=== PATIENT | male | born 1960 | race Caucasian/White ===

== ENCOUNTER → 2023-01-15 12:59 | Outpatient (CLI) | payer OTHER, SELFPAY ==
[2023-01-15 13:56] LABS: Add Manual Diff / Slide Review NO; Basophils Absolute Auto 100 /uL (0-100); Basophils Percent Auto 1.1 % (0-2); Eosinophils Absolute Auto 500 /uL (0-450); Eosinophils Percent Auto 5.1 % (2-4); Hematocrit 45.7 % (41-53); Hemoglobin 16.6 g/dL (13.5-17.5); Lymphocytes Absolute Auto 3100 /uL (1100-4500); Lymphocytes Percent Auto 33.5 % (25-40); Mean Corpuscular HGB Conc 36.3 % (30-36); Mean Corpuscular Hemoglobin 32.6 PG (26-34); Mean Corpuscular Volume 89.6 fL (80-100); Monocytes Absolute Auto 800 /uL (0-900); Monocytes Percent Auto 9.2 % (3-14); Neutrophils Absolute Auto 4700 /uL (1500-7000); Neutrophils Percent Auto 51.1 % (50-75); Platelet Count 312 X10^3/uL (150-400); Red Cell Distribution Width 13.1 % (11.6-14.8); White Blood Cell Count 9.1 X10^3/uL (4.5-11.0)
[2023-01-15 14:04] LABS: BUN Creatinine Ratio 8.6 (6-22); Blood Urea Nitrogen 8 mg/dL (9-20); Calcium 9.3 mg/dL (8.4-10.2); Carbon Dioxide 24 mmol/L (22-32); Chloride 102 mmol/L (98-107); Estimated Glomerular Filt Rate > 60 mL/min (>60); Glucose 121 mg/dL (80-110); HEMOLYSIS < 15 (0-50); Potassium 3.6 mmol/L (3.4-5.1); Sodium 136 mmol/L (137-145)
[2023-01-16 12:30] LABS: Labcorp Hemoglobin (Hb) A1c 5.8 % (4.8-5.6)
== END ==
PROVIDERS: Referring Provider Orthopaedic Surgery Foot and Ankle Surgery; Visit Provider Orthopaedic Surgery Foot and Ankle Surgery
DX: Z01.818 Encounter for other preprocedural examination (principal); Z01.812 Encounter for preprocedural laboratory examination; R73.9 Hyperglycemia, unspecified
CPT/HCPCS: 36415; 80048; 83036; 85025; 93005

== ENCOUNTER 2023-02-12 06:21 | Day surgery (SDC) | payer OTHER, SELFPAY ==
[2023-02-09 13:50] VITALS: BMI 34.9
[2023-02-12] VITALS (16 sets, daily range): BP systolic 127–160; BP diastolic 76–93; PULSE 55–75; RESP 11–19; TEMP 36.2–36.6; O2SAT 5–97; BMI 34.9
--- NOTE | 2023-02-12 06:00 | DI.RAD.S_ITS ---
PROCEDURE: XR KNEE RT 1TO2V INDICATIONS: POST OP TOTAL KNEE TECHNIQUE: 2 view(s) of the knee acquired. COMPARISON: [facility] [place], JIMMY, XR KNEE 4+ VIEWS RIGHT, 11/10/2022, 14:34. FINDINGS: Bones: Patient is status post knee joint arthroplasty. Hardware components are in expected positions. Visualized bony structures are intact. Soft tissues: Overlying postoperative changes are noted. IMPRESSION: Expected postoperative appearance of the right knee arthroplasty. Dictated by: Narendra Mead M.D. on 02/12/2023 at 12:08 Approved by: Narendra Mead M.D. on 02/12/2023 at 12:10
[2023-02-12] MEDS: ACETAMINOPHEN 325 MG TABLET 975 MG PO (07:08)
[2023-02-12] MEDS: PREGABALIN 75 MG CAPSULE PO (07:09)
[2023-02-12] MEDS: CELECOXIB 200 MG CAPSULE PO (07:10)
--- NOTE | 2023-02-12 07:14 | PM.PREOP ---
Pre-operative Note Interval Note History & Physical reviewed/Exam performed by Physician: Yes Changes to H&P: No
[2023-02-12] MEDS: LACTATED RINGERS 1,000 ML 42 ML IV ×3 (07:16→20:12)
[2023-02-12] MEDS: CEFAZOLIN 2 GM/100 ML PREMIX 100 ML IV (08:00)
--- NOTE | 2023-02-12 08:00 | PM.OP.1 ---
Operative Date/Time/Diagnoses Date of procedure: 02/12/23 Time of procedure: 08:00 Pre-op diagnosis: Arthritis right knee BMI 35 Post-op diagnosis: same Procedure & Clinicians Procedure: Total knee arthroplasty right CPT code 98540 Same procedure as scheduled: Yes Indications: Patient is a 62-year-old male that sustained a permanent aggravation of right knee arthritis and calcium pyrophosphate disease with an at work injury. He is failed conservative treatment with anti-inflammatories arthroscopic surgery and injections and braces. He has been indicated for total knee arthroplasty. The risks and benefits of the procedure have been discussed with the patient and given the opportunity to ask questions. The risks of surgery include but are not limited to infection, malunion, nonunion, persistence of pain, damage to nerves and blood vessels, posttraumatic arthritis, DVT, PE, cardiopulmonary complications and . The patient expressed a thorough understanding of the risks and benefits of surgery and has elected to proceed. Consent was signed. During the operation, the services of a physician neurosurgical nurse were medically indicated and necessary to provide the exposure of the operative site for the surgical procedure and to maintain the limb in a proper position to carry out the operation safely and efficiently. Without a qualified social work assistant being present this would extended the operative procedure and made the procedure technically more difficult to perform. Surgeon: Hailey Lacey Seam Closer: William Jeronimo Anesthesia Type: General, Spinal and Local Operative Notes Findings: Tricompartmental End-stage knee arthritis, chondrocalcinosis Closure Type: primary Specimen(s): none sent Prosthetic devices, grafts, tissues, transplants, or devices: [employer]ges and nephew journey BCS II knee Femur Oxinium size 9 Tibia size 7 Poly 9 mm Patella 35 mmx 7.5 Estimated Blood Loss (mL): 30 Blood products transfused: none Tourniquet time (min): 103 Procedure in detail: Patient was seen in the preoperative area where the patient and site of surgery were identified in the operative knee was marked informed consent confirmed. This was the left knee. Patient received the appropriate preoperative antibiotics this was 3 g of Ancef. And other preoperative medications and was taken to the operating room placed on operating table in the supine position. Spinal anesthetic were administered. The operative extremity was then prepped and draped in the standard sterile fashion with a nonsterile tourniquet high on the thigh. Patient was placed on the green foam bolsters. A lateral post was placed at the level of the proximal thigh /trochanter area as a lateral post. Formal time-out procedure was performed confirming the patient's side and site of surgery and administration of appropriate preoperative antibiotics and implants were in the room accounted for. All were in agreement. Patient received a preoperative dose of tranexamic acid and then a 2nd dose at tourniquet release Patient was prepped and draped in the standard sterile fashion and the foot was placed into the [facility] leg lewis. This was taken into high flexion and the incision was marked out over the anterior knee to the level of the medial tubercle tubercle. The Esmarch was then used for exsanguination and the tourniquet was inflated to 250 mmHg. Was made through the skin and subcutaneous tissue in high flexion this was then brought down into 30? of flexion for the medial parapatellar arthrotomy. A marker pen was used to roxanne the arthrotomy site for later repair. Joint fluid was evacuated. The anterior osteophytes and soft tissues were removed. Routine medial release was initially made along the medial proximal tibia with Bovie. The patella was on quite a bit of tension on attempted eversion so the quad incision was lengthened to relax it and then the patella was 1st cut using the saw sized and prepped and then subluxed throughout the case and protected. The leg was then taken into extension and the patella was everted and the patella was cut to accommodate the patellar button. This was sized to a 35 mm button for a 7.5 mm thickness to recreate the original dimensions of the patella. Poly was removed and the protector replaced and the patella was subluxed and the knee was taken back up into flexion and attention was returned to the femur. Then the rotational landmarks of Whitesides line and the trans epicondylar axis were marked on the femur with electrocautery. Then the intramedullary guide for the femur was created. The distal femoral cut was made in 6? of valgus using the intramedullary guide with the cut setting on 0+ as the patient did not have a preoperative flexion contracture. The ACL and PCL released. The proximal tibia was then cut using the intramedullary guide, taking 9 mm off the less involved side this was the lateral plateau. The Robert wing was used to check the slope through the guide. Second pass was made through the tibial cut guide with the saw after the cut tibia was removed plane down about 1 more mm and further smooth then the resection surface. In extension remainders of the medial and lateral menisci were removed. The extension flexion gaps were then checked using both the flexion extension blocks. And was selected for a 9 mm poly femur was then sized and the rotation set using the posterior condyle referencing 3? of external rotation. This measured a size 9. Therefore 2 more mm were taken off the distal femur to accommodate for the size 9 cut block. Cut block was then placed and the anterior, posterior and chamfer cuts were then made. The posterior osteophytes and soft tissues were then removed. Then in extension the posterior capsule was injected with a mixture of 40 mL of 0.25% Marcaine and 20 mL of Exparel care to avoid excessive injection posterior laterally. The remainder of this was saved for the capsule and subcutaneous tissue and placed during cement curing. Attention was then returned to the tibia and this was prepared with the rotation set by the extramedullary guide. Lined up with the tibial crest and the 2nd toe. The tibial trial was then pinned in place and the trial femoral components were placed. Then the intercondylar notch was cut through the femoral trial to create the box this was done with the distal than the proximal drill and then the box cut distally and then proximally. Next the insert was placed and the trial poly placed. This was stable in flexion and extension and there was a 0-135 degree range of motion. The tibia was then finished with the drill and flange cuts and then this was removed. All trials were removed. The wound and bone was irrigated with pulsatile lavage. This was then dried with a sponge. The components were verified and opened and the cement was mixed. Cement was applied to the components and then to the bone then the tibia was cemented in place 1st followed by the femur then the patella. Excess cement was removed. With care looking around the back of the knee. Remainder of the injection was injected around the capsule. trial poly was placed back in the leg was placed into extension for the patellar cementing. After this was cured approximately 15 minutes later and the dilute Betadine solution was placed for at least 3 minutes in the wound this was then irrigated out and the final poly was placed. This was a 9 mm poly. The tourniquet was released hemostasis was achieved. Final 1g of tranexamic acid was given IV at the time of tourniquet release. The capsule was closed with 1. Ethibond suture. Subcutaneous layer was closed with 3-0 Vicryl suture. Skin was closed with a running V lock suture Stratafix Monocryl type suture and Dermabond. An Aquacel dressing was placed. An Layo wrap was applied. Anesthetic was terminated the patient was woken from anesthesia and taken to recovery room in good condition. There no immediate complications from this procedure. The patient will be maintained on a standard total knee replacement protocol with weight-bearing as tolerated. All counts were correct. Complications: none Post-operative Condition: stable Disposition: PACU Plan for aftercare: Weightbear as tolerated. Immediate range of motion. Outpatient physical therapy and home exercises. We will start Eliquis 2.5 mg b.i.d. for 12 days for DVT prophylaxis postoperatively. Has prescriptions for oxycodone for pain, Zofran for nausea and may take [id number] Tylenol and ibuprofen. Follow-up in 2 weeks for wound check. May shower with the Aquacel dressing
[2023-02-12] MEDS: CEFAZOLIN VIAL 1 GM in SODIUM CHLORIDE 0.9% 100 ML IV (08:15)
[2023-02-12] MEDS: TRANEXAMIC ACID 1,000 MG VIAL 1000 MG INJ ×2 (08:20→10:10)
--- NOTE | 2023-02-12 08:32 | SUR.OPER ---
Supine on padded OR bed, head on pillow, arms secured on padded arm boards and additional blankets to pad up at <90 degrees abduction, legs uncrossed, safety belt at abdomen, tape over blanket over lower left leg. Right leg secured in DeMayo positioner with coban and cushioned with foam.
[2023-02-12] MEDS: BUPIVACAINE 0.25% (PF) 60 ML, EPINEPHrine 0.3 MG INJ (08:54)
[2023-02-12] MEDS: BUPIVACAINE LIPOSOME 266 MG/20 ML VIAL INJ (08:55)
--- NOTE | 2023-02-12 11:43 | SUR.PHASEII ---
Placed patient in Phase 2 recovery for further evaluation of spinal level and dermatomes. Patient remains on oxygen at 3 liters via nasal cannula and is in no distress. Will further evaluate spinal level and oxygenation. Calll light in reach.
--- NOTE | 2023-02-12 14:45 | PT.IPTN ---
Current Diagnoses Other specified crystal arthropathies, right knee (02/12/23) Unilateral primary osteoarthritis, right knee (02/12/23) Surgery Performed Operation Date: 02/12/23 07:45 Actual Procedures p Total Knee Arthroplasty(Right) - Hailey Lacey MD Physical Therapy Treatment Note M3 PT-IP Subjective Start: 02/12/23 15:07 Freq: NEEDED Status: Active Protocol: Document 02/12/23 14:45 AB (Rec: 02/12/23 15:37 AB [id number]) Subjective Physical Therapy Visit Type Type Administrative Note Notes checked on pt but pt stated that BLE are still numb. pt is not ready for PT at this time. obtained PLOF and home set up from pt. will follow up
--- NOTE | 2023-02-12 15:12 | OT.IPNOTE ---
Attempted OT eval and not able to fully feel his right knee at this time. Able to get his prior level and initiate ADL equipment needs. No charge.
--- NOTE | 2023-02-12 15:37 | PT-IP ANOTE ---
checked on pt at 1445 and pt stated that BLE are still numb. pt is not ready for PT at this time. checked back on pt after ~ 30 min and pt continues to still have BLE numbness and still not appropriate for PT. will f/u.
[2023-02-12] MEDS: hydrOXYzine pamoate 25 MG CAPSULE PO (15:43)
[2023-02-12] MEDS: OXYCODONE IR 10 MG TABLET PO (15:43)
[2023-02-12] MEDS: ACETAMINOPHEN 325 MG TABLET 650 MG PO ×2 (16:03→22:39)
[2023-02-12] MEDS: CEFAZOLIN VIAL 3 GM in SODIUM CHLORIDE 0.9% 100 ML IV (16:05)
[2023-02-12] MEDS: IBUPROFEN 600 MG TABLET PO (18:54)
[2023-02-12] MEDS: DOCUSATE 100 MG CAPSULE PO (20:10)
[2023-02-12] MEDS: APIXABAN 5 MG TABLET 2.5 MG PO (20:10)
[2023-02-13] MEDS: CEFAZOLIN VIAL 3 GM in SODIUM CHLORIDE 0.9% 100 ML IV (00:19)
[2023-02-13] MEDS: IBUPROFEN 600 MG TABLET PO ×3 (00:21→18:08)
[2023-02-13] MEDS: ACETAMINOPHEN 325 MG TABLET 650 MG PO ×4 (03:54→21:44)
--- NOTE | 2023-02-13 07:48 | P.PN_ITS ---
Subjective Subjective Date Patient Seen: 02/13/23 Time Patient Seen: 07:48 Interval history: [id number] pain. No fever or chills. No nausea or vomiting. Exam Vital Signs (past 8 hours): Oxygen Delivery Method Nasal Cannula Oxygen Flow Rate 0 Narrative Exam Narrative: 62-year-old male resting comfortably in bed in no apparent distress. Dressing is Clean, dry, intact.. Motor functions intact bilateral lower extremities. Sensation grossly intact to light touch bilateral lower extremities. Const General: cooperative and comfortable Nutritional Appearance: well nourished Orientation: alert Resp Effort & Inspection: normal respiratory effort and able to speak in complete sentences [facility] Medical History Hepatitis Psoriasis Surgical History Hx of arthroscopy of right knee Social History household members: none Smoking Status: Former smoker alcohol intake: former Assessment & Plan Post-op Postoperative Procedures: Procedures Operation Date: 02/12/23 07:45 Actual Procedure Side Surgeon p Total Knee Arthroplasty Right Hailey Lacey MD Postoperative day: 1 Postoperative status: doing well Postoperative plan: routine post-op care Postoperative plan narrative: Mobilize with physical therapy, weight-bearing as tolerated Multimodal pain management Eliquis for DVT prophylaxis Likely discharge home later today or tomorrow.
[2023-02-13 08:29] VITALS: BP 147/85; PULSE 63; RESP 18; TEMP 36.2; O2SAT 93
[2023-02-13] MEDS: APIXABAN 5 MG TABLET 2.5 MG PO ×2 (09:23→20:24)
[2023-02-13] MEDS: OXYCODONE IR 10 MG TABLET PO ×4 (09:25→21:48)
[2023-02-13] MEDS: DOCUSATE 100 MG CAPSULE PO ×2 (09:25→20:25)
[2023-02-13] MEDS: SODIUM CHLORIDE 0.9% FLUSH 10 ML IV ×2 (09:26→20:27)
[2023-02-13] MEDS: hydrOXYzine pamoate 25 MG CAPSULE PO ×2 (11:23→20:25)
--- NOTE | 2023-02-13 11:50 | PT.IIE ---
Current Diagnoses Other specified crystal arthropathies, right knee (02/12/23) Unilateral primary osteoarthritis, right knee (02/12/23) Surgery Performed Operation Date: 02/12/23 07:45 Actual Procedures p Total Knee Arthroplasty(Right) - Hailey Lacey MD Surgical History (Last Reviewed 02/13/23 @ 07:49 by William Jeronimo PA-C) Hx of arthroscopy of right knee Medical History (Last Reviewed 02/13/23 @ 07:49 by William Jeronimo PA-C) Hepatitis Psoriasis Physical Therapy Inpatient Evaluation/Re-Eval M1 PT/OT-IP Prior Functional Status Start: 02/12/23 15:07 Freq: NEEDED Status: Active Protocol: Document 02/13/23 11:34 ES (Rec: 02/13/23 11:50 ES [id number]) Medical Review Prior Functional Status Medical History Reviewed Yes Communication able to make needs known Mobility and Gait pt stated that he is independent with all mobilities and ambulation without AD Activities of Daily Living and IADL's Indep Social History Household Members none Living Arrangements House Number of Floors (Floors) One Floor Number of Stairs To Enter/Railing? no steps to enter Home Environment Standard Height Toilet,Walk in Shower,Built-In Shower Seat Home Equipment Front Wheel Walker,Straight Cane,Raised Toilet Seat w/ Armrests,Hand Held Shower,Grab Bars Near Toilet,Grab Bars In Shower Additional Social History Comment Pt stated that his brother and JOSE lives just across the street from him and can help him if needed. Pt sleeps in a flat bed and has a rail attached to the wall next to the bed. M2 PT-IP Current Condition Start: 02/12/23 15:07 Freq: NEEDED Status: Active Protocol: Document 02/13/23 11:34 ES (Rec: 02/13/23 11:50 ES [id number]) Physical Therapy Current Condition Current Condition Evaluation Date 02/13/23 Treatment Diagnosis s/p R TKA Onset Date 02/12/23 M3 PT-IP Subjective Start: 02/12/23 15:07 Freq: NEEDED Status: Active Protocol: Document 02/13/23 11:34 ES (Rec: 02/13/23 11:50 ES [id number]) Subjective Physical Therapy Visit Type Type Initial Evaluation Visit Start Time 10:42 Visit Stop Time 11:29 Total Visit Minutes 47 Physical Therapy Visit Comments Patient Comments Patient alert in bed, had received pain meds about 1 hour prior to visit and reported they are helping some . Agreeable to work with PT. Stated he has had R knee pain ever since prior knee surgery and has had to make accommodations for it leading up to surgery. Takes 10mg oxycodone at home. Has OP PT scheduled already. Patient Goals To go home when ready. Therapy Pain Assessment Pain When Pain Assessed During Mobility Pain Present Pain Present Pain Reported Location R knee Scale Used 5/10 at rest, increased with activity Pain Management Techniques Apply Cold,Elevation, Modification of Treatment, Timing of Activity with Medications M4 PT-IP Mobility and Gait Start: 02/12/23 15:07 Freq: NEEDED Status: Active Protocol: Document 02/13/23 11:34 ES (Rec: 02/13/23 11:50 ES [id number]) PT-Bed Mobility Assessment Supine to Sit Supine to Sit Minimal Assistance,Bedrails Scooting Scooting to Edge of Bed Standby Assistance Scooting Up and Down in Bed Independent PT-Transfer Assessment Sit to and From Stand Sit to and from Stand Contact Guard Assistance,Use of Upper Extremities Equipment Transfer Assistive Device Gait Belt,Front Wheeled Walker Orthotic/Prosthetic Devices or Brace: No Transfers Transfer Destination Chair Transfer Technique Ambulation Transfer Ability Level of Assist Contact Guard Assistance,Use of Upper Extremities Comments Mobility Comments Required assist to move RLE to EOB for supine to sit. CGA for initial STS, then SBA for stand to sit. All transitions very painful in R thigh/knee. Patient stood to urinate at toilet using grab bar with supervision. Patient up to recliner at end of session with leg rest elevated, pillow under calves. Gait Assessment Gait Gait Assistance Required: Contact Guard Assist Distance (Feet) 16 Assistive Devices Assistive Device Gait Belt,Front Wheeled Walker Gait Deviations General Gait Pattern Antalgic,Decreased Stride Length,Decreased Feet Clearance,Step-to Gait Factors Limiting Gait Function Factors Limiting Gait Function Decreased Strength,Limited Range of Motion,Pain Comments Gait Comments Patient ambulated with decreased WB on RLE due to pain, decreased heel-toe pattern, and decreased R knee flexion/extension. C/o pain with increased WB on RLE. Patient use his personal FWW; PT adjusted the height lower to allow more elbow extension for more effective UE support. Stair Climbing Assessment Comments Stair Climbing Comments Did not attempt due to high levels of pain and decreased WB tolerance with walking. PT-Balance Assessment Sitting Balance and Reactions Static Sitting Balance Ability Good Dynamic Sitting Balance Ability Good Standing Balance and Reactions Static Standing Balance Ability Good Dynamic Standing Balance Ability Fair Device Used FWW M5 PT-IP Objective Assessments Start: 02/12/23 15:07 Freq: NEEDED Status: Active Protocol: Document 02/13/23 11:34 ES (Rec: 02/13/23 11:50 ES [id number]) Orientation Orientation/Cognition Level of Alertness Alert Orientation Name,Age,Birthday,Month,Date, Year,Day of Week,Place, Situation Language Function Ability No Deficits Noted Safety Awareness Understands Safety Issues Memory Description No Deficits Noted Gross Range of Motion Upper Extremity ROM Assessment Within Functional Limits Lower Extremity ROM Assessment Right Impaired Impairments R knee flexion 10-40 degrees, otherwise WFL Strength Upper Extremity Strength Assessment Within Functional Limits Lower Extremity Strength Assessment Right Impaired Comments Strength Comments Poor+ quad activation with quad sets. Required assist to perform heel slide/knee flexion. Sensation Assessment Sensation Gross Sensation WNL M6 PT-IP Treatment Start: 02/12/23 15:07 Freq: NEEDED Status: Active Protocol: Document 02/13/23 11:34 ES (Rec: 02/13/23 11:50 ES [id number]) Physical Therapy Treatment Exercises Exercises Ankle Pumps,Quad Sets,Heel Slides,Straight Leg Raises, Short Arc Quads,Seated Knee Flexion/Extension Education Education Provided Precautions,Weight Bearing Status,Post-Op Packet,Safety M7 PT-IP Assessment and Plan Start: 02/12/23 15:07 Freq: NEEDED Status: Active Protocol: Document 02/13/23 11:34 ES (Rec: 02/13/23 11:50 ES [id number]) PT Summary Assessment and Plan Potential Rehabilitation Potential Good Status of Condition at Evaluation Stable Summary Impairments Pain,ROM,Strength,Balance,Bed Mobility,Transfers,Gait, Activity Tolerance Assessment Summary Patient is a 62 year old male POD #1 s/p R TKA. Patient had poor tolerance to mobility and exercises due to pain. He demonstrated very limited R knee flexion and was unable to tolerate full knee extension. He ambulated 16 ft total with slow, antalgic gait. He required assistance to complete ex's due to pain, weakness, and stiffness. He will benefit from further skilled therapy to increase his independence with mobility tasks and HEP in order to d/c home safely. Goals Bed Mobility Goal Independent Transfer Goal Independent,Front Wheeled Walker Gait Goal Independent,Front Wheel Walker Gait Distance 50 Other Goals Patient will be indep with TKA HEP. Days to Meet Goals 3 Frequency of Treatment Frequency Of Treatment Twice a Day Treatment Plan Physical Therapy Treatment Plan Bed Mobility Training,Transfer Training,Gait Training, Therapeutic Exercise,Post Op Education,Discharge Planning, Hot or Cold Pack Weight Bearing Status Weight Bearing Status Weight Bear as Tolerated Allowed Weight Bearing Amount (enter % WBAT RLE or #) (%) Recommendations To Nursing Amount of Assist Needed 1 Person Assist Discharge Recommendations PT Discharge Recommendations Home with Assistance, Outpatient PT Transportation Needs at Discharge Private Vehicle
--- NOTE | 2023-02-13 12:13 | OT.IP.EVAL ---
Current Diagnoses Other specified crystal arthropathies, right knee (02/12/23) Unilateral primary osteoarthritis, right knee (02/12/23) Surgery Performed Operation Date: 02/12/23 07:45 Actual Procedures p Total Knee Arthroplasty(Right) - Hailey Lacey MD Past Medical History (Last Reviewed 02/13/23 @ 13:20 by William Jeronimo PA-C) Hepatitis Psoriasis Surgical History (Last Reviewed 02/13/23 @ 13:20 by William Jeronimo PA-C) Hx of arthroscopy of right knee Occupational Therapy Inpatient Evaluation/Re-Eval M1 PT/OT-IP Prior Functional Status Start: 02/12/23 15:07 Freq: NEEDED Status: Active Protocol: Document 02/13/23 12:42 CGR (Rec: 02/13/23 13:22 CGR [id number]) Medical Review Prior Functional Status Medical History Reviewed Yes Communication able to make needs known Mobility and Gait pt stated that he is independent with all mobilities and ambulation without AD Activities of Daily Living and IADL's Indep Social History Household Members none Living Arrangements House Number of Floors (Floors) One Floor Number of Stairs To Enter/Railing? 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 Pt sleeps in a flat bed and has a rail attached to the wall next to the bed. M2 OT-IP Current Condition Start: 02/12/23 15:10 Freq: Status: Active Protocol: Document 02/13/23 12:42 CGR (Rec: 02/13/23 13:22 CGR [id number]) Occupational Therapy Current Condition Current Condition Evaluation Date 02/13/23 Treatment Diagnosis R TKA WBAT Diagnosis Onset Date 02/12/23 Weight Bearing Status Weight Bearing Status Weight Bear as Tolerated M3 OT- IP Subjective and Pain Start: 02/12/23 15:10 Freq: Status: Active Protocol: Document 02/13/23 12:42 CGR (Rec: 02/13/23 13:22 CGR [id number]) OT- Subjective Occupational Therapy Visit Type Type Initial Evaluation Visit Start Time 11:46 Visit Stop Time 12:13 Total Visit Minutes 27 OT Pain Assessment Pain When Pain Assessed During Mobility Pain Present Pain Present Pain Reported Location R knee Scale Used did not rate Pain Behaviors Facial Grimacing,Guarding, Wincing Management Techniques Distraction,Modification of Treatment,Re-positioning, Timing of Activity with Medications M4 OT- IP ADL's Start: 02/12/23 15:10 Freq: Status: Active Protocol: Document 02/13/23 12:42 CGR (Rec: 02/13/23 13:22 CGR [id number]) OT [id number] Comments OT Self-Feeding Comments not meal time OT ADL-Grooming General Evaluation Grooming Ability Independent Comments OT Grooming Comments standing at sink OT ADL-Oral Care General Eval Oral Care Ability Independent Areas of Assistance Brushing Teeth Comments Oral Care Comments standing at sink OT ADL-Dressing Comments OT Dressing Comments not performed, pt states that he was educated on use of outreach counselor and sock aid yesterday by Carito OT ADL-Toileting Comments OT Toileting Comments not performed, pt states he was just up to the bathroom with P.T. OT ADL-Bathing Comments OT Bathing Comments not performed M5 OT- IP IADL's Start: 02/12/23 15:10 Freq: Status: Active Protocol: Document 02/13/23 12:42 CGR (Rec: 02/13/23 13:22 CGR [id number]) OT-Instrumental Activities of Daily Living Deficits IADL Deficits Identified No Deficits Home Safety Awareness Awareness of Need for Assistance at Home Good Awareness Ability to Problem Solve Emergency Able to Problem Solve Situations Medication Management Medication Management No Deficits Identified Money Management Money Management No Deficits Identified Meal Preparation Meal Preparation Caregiver Provides Assist Meal Preparation Comments Pt states that his brother and sister in law can assist. Hospice Administrator Hospice Administrator Caregiver Provides Assist Hospice Administrator Comments Pt states that his brother and sister in law can assist. M6 OT- IP Functional Cognition Start: 02/12/23 15:10 Freq: Status: Active Protocol: Document 02/13/23 12:42 CGR (Rec: 02/13/23 13:22 CGR [id number]) Cognitive Factors Limiting Selfcare Function Cognitive Ability Level of Alertness Alert Patient Orientation Name,Age,Birthday,Month,Date, Year,Day of Week,Place, Situation Attention Span Ability Capable of Focused Attention, Capable of Sustained Attention Ability to Follow Commands Able to Follow One Step Commands with Increased Time, Able to Follow One Step Commands with Repetition OT- Vision and Hearing OT- Hearing Assessment OT- Hearing Assessment WFL OT- Vision Assessment Visual Acuity WFL Visual Attentiveness WFL Occular Pursuits WFL Visual Convergence WFL M7 OT- IP Mobility and Balance Start: 02/12/23 15:10 Freq: Status: Active Protocol: Document 02/13/23 12:42 CGR (Rec: 02/13/23 13:22 CGR [id number]) OT-Transfer Assessment Sit to and From Stand Sit to and from Stand Contact Guard Assistance Transfers Transfer Ability Contact Guard Assistance Technique Transfer Destination Bed Transfer Technique Stand Step Pivot Devices Transfer Assistive Devices Gait Belt,Front Wheeled Walker Comments Mobility Comments Pt stood from chair with extra time and CGA. Pt then ambualted to sink for ADLs and returned to chair afterwards. Pt educated on putting RLE out prior to sitting and sitting slowly but pt performed an uncontrolled stand to sit plopping into the chair prior to getting his leg out far enough causing his knee to bend further than he was comfortable with. Pt yelled out and nursing came to check on patient. Pt states he is fine just with increased pain. Further educated patient on using his arms on the chair rails to help his decent into the chair and better placement of his RLE prior to starting the stand to sit. Pt left sitting up in chair at end of session. OT- Balance Assessment Sitting Balance and Reactions Static Sitting Balance Ability Good Dynamic Sitting Balance Ability Good M8 OT- IP Objective Assessments Start: 02/12/23 15:10 Freq: Status: Active Protocol: Document 02/13/23 12:42 CGR (Rec: 02/13/23 13:22 CGR [id number]) OT Gross Range of Motion Upper Extremity Range of Motion Assessment Within Functional Limits OT Strength Upper Extremity Strength Assessment Within Functional Limits Shoulder 5-/5 Elbow 4/5 Hand 5-/5 Comments Strength Comments Pt states his biceps are feeling weak after using the walker to walk to the bathroom with P.T. OT- Coordination Assessment Upper Extremity Finger to Nose Test Within Functional Limits Finger Tapping Test Within Functional Limits OT-Muscle Tone Assessment Muscle Tone WNL Yes OT Sensation Assessment Edema Edema Absent M9 OT- IP Assessment and Plan Start: 02/12/23 15:10 Freq: Status: Active Protocol: Document 02/13/23 12:42 CGR (Rec: 02/13/23 13:22 CGR [id number]) OT Summary Assessment and Plan Potential Rehabilitation Potential Good Analytic Complexity at Evaluation Moderate Summary OT Impairments Pain,Balance,Functional Mobility,Dressing,Toileting, Bathing,Toilet Transfers, Shower Transfers,Activity Tolerance Progress Towards Goals Progressing Toward Goals Assessment Summary Pt presents as a moderate complexity evaluation s/p admit for R GAUDENCIO. Pt is having significant pain with movement but was able to ambulate to the sink for ADLs standing. Pt then returned to chair and sat without properly preparing his R leg and without good use of his arms for deceleration. Pt further educated on safety and left sitting up in chair. Pt is likley to progress quickly but would benefit from another day with assist prior to returning home. Goals Grooming Goal Independent Dressing Goal Independent Toileting Goal Independent Bathing Goal Independent Toilet Transfer Goal Independent Shower Transfer Goal Independent Days to Meet Goals 10 Frequency of Treatment Frequency Of Treatment Once a Day Treatment Plan OT Treatment Plan Functional Mobility,Patient/ Family Education,Discharge Planning Other Treatment Recommendations and Next shower, home safety Treatment Focus Discharge Recommendations OT Discharge Recommendations Home with Assistance Transportation Needs at Discharge Private Vehicle
--- NOTE | 2023-02-13 13:17 | P.DS_ITS ---
History of Present Illness History of Present Illness Date Patient Seen: 02/13/23 Time Patient Seen: 07:45 Chief complaint: OPB Discharge Providers Provider Discharge Date: 02/13/23 Consults: 02/12/23 12:43 Consult to Discharge Planning Routine Comment: dc home same day or postop 1 Consult to Occupational Therapy Evaluate & Treat Comment: Physician Instructions: Evaluate and treat Consult to Physical Therapy Evaluate & Treat Comment: dc same day once spinal wears off if possible Physician Instructions: postop TKA protocol Discharge provider: William Jeronimo PA-C Summary Hospital Course Discharge Diagnosis: Right knee osteoarthritis Hospital Course: Total knee arthroplasty right CPT code 07368 Same procedure as scheduled: Yes Indications: Patient is a 62-year-old male that sustained a permanent aggravation of right knee arthritis and calcium pyrophosphate disease with an at work injury.? He is failed conservative treatment with anti-inflammatories arthroscopic surgery and injections and braces.? He has been indicated for total knee arthroplasty.? The risks and benefits of the procedure have been discussed with the patient and given the opportunity to ask questions.? The risks of surgery include but are not limited to infection, malunion, nonunion, persistence of pain, damage to nerves and blood vessels, posttraumatic arthritis, DVT, PE, cardiopulmonary complications and .? The patient expressed a thorough understanding of the risks and benefits of surgery and has elected to proceed.? Consent was signed. During the operation, the services of a physician certified surgical technician were medically indicated and necessary to provide the exposure of the operative site for the surgical procedure and to maintain the limb in a proper position to carry out the operation safely and efficiently.? Without a qualified information assistant being present this would extended the operative procedure and made the procedure technically more difficult to perform. Surgeon: Hailey Lacey Pharmacist Assistant: William Jeronimo Anesthesia Type: General, Spinal and Local Operative Notes Findings: Tricompartmental End-stage knee arthritis, chondrocalcinosis Closure Type: primary Specimen(s): none sent Prosthetic devices, grafts, tissues, transplants, or devices: Hodges and nephew praveena? BCS II knee Femur Oxinium size 9 Tibia size 7 Poly 9 mm Patella 35 mmx 7.5 Estimated Blood Loss (mL): 30 Blood products transfused: none Tourniquet time (min): 103 Patient admitted to the hospital for right total knee arthroplasty. Patient consented to the same. Patient taken operating room on February 12, 2023 underwent right total knee arthroplasty. Patient back in his room recovering well as in stable condition. Patient has worked with physical therapy. Patient will be discharged home today in stable condition. Exam Vital Signs (past 8 hours): - 02/13/23 08:29 Temperature 97.1 F L Pulse Rate 63 Respiratory Rate 18 Blood Pressure 147/85 H Pulse Oximetry 93 Oxygen Flow Rate 0 Oxygen Delivery Method Nasal Cannula Oxygen Flow Rate 0 Narrative Exam Narrative: See progress note PFSH Medical History Hepatitis Psoriasis Surgical History Hx of arthroscopy of right knee Social History household members: none Smoking Status: Former smoker alcohol intake: former Discharge Assessment & Plan Assessment and Plan Assessment: Patient progressing as expected status post right total knee arthroplasty Plan of Treatment: Weight-bearing as tolerated Multimodal pain management Eliquis for DVT prophylaxis Follow up in 2 weeks as scheduled Discharge home today in stable condition Discharge Plan Discharge Plan Patient Disposition: Home Discharge orders & Medications Discharge Orders: Discharge (Order); Ordered 02/12/23 Ordered By: Hailey Lacey Prescriptions: New Eliquis 2.5 mg tablet 2.5 mg PO BID Qty: 24 0RF Rx Instructions: postop dvt prophylaxis tka ondansetron HCl 4 mg tablet 4 mg PO Q8H PRN (Reason: nausea and vomiting) Qty: 5 1RF Follow up/Referrals: Hailey Lacey MD [Physician] - (as scheduled) Diet/Activity/Treatments Diet: Diet as Tolerated Other treatments: Medications: -Eliquis 2.5mg twice daily for 12 days to prevent blood clots. (start 12 hours after surgery) -OTC Tylenol 500 mg 1 tablet every 4 hours as needed for pain/fever. Max 6 tablets per day. (take scheduled every 4-6 hours for the first few days to week after schedule to help stay on top of your pain) -Ibuprofen 400 mg 1 tablet every 4 hours as needed for pain/inflammation. Max 2,400 mg per day. (take scheduled for the first few days-week after surgery to stay on top of your pain) -Oxycodone 5 mg take 1-2 tablets (5-10mg) every 4 hours as needed for moderate- severe pain (narcotic pain medication). (maximum dose for very severe pain would be 3 pills (15mg) every 3 hours) -Vistaril (hydroxyine) 25mg 1 tab every 4 hours as needed for spasms/pain/nausea. -Ondansetron 4mg - 1 tab every 8 hours as needed for nausea -As needed medications: -Ducolax and /or MiraLax as needed for constipation from narcotic pain medications. -Pepcid AC as needed for stomach upset (usually from aspirin or ibuprofen). Dressing/Wound care: -Remove the Layo wrap 48 hours after surgery. -Keep Aquacell dressing in place until postoperative follow-up office visit. -Okay to shower. Keep wound out of direct water stream. No soaking or submerging until all the scabs fall off (approximately 4-6 weeks). -No lotions, ointments, or scar creams directly to the incision until the wound is healed (4-6 weeks), -Please call the office if dressing becomes wet, soiled, or saturated. Activities: -Weight-bearing as tolerated. Use front wheeled walker, and progress to cane when safe. -Continue with home exercises as directed by your physical therapist. (work on getting your leg. knee fully straight and bending knee as well- motion after knee replacement is very important) -should have outpatient Physical Therapy visits set up to start within 1 week after surgery -Elevate ?toes above the nose if you have significant swelling in your lower leg. (A wedge pillow is easiest.) -Ice your incision as needed for pain/inflammation/swelling. Protect your skin with a folded pillowcase. -Incentive Spirometer (breathing device from hospital): 5-10xs every hour while awake for the first 1-2 weeks. Follow-up: -Follow-up with your surgeon or PA in the office in 10-14 days after surgery. -Follow-up with your surgeon 6 weeks postoperatively. Contact the office if you have any of the following: ? Painful swelling or numbness ? Unrelenting pain ? Fever (over 101?- it is normal to have a low grade fever for the first day or two following surgery) or chills ? Redness around the incisions ? Color changes ? Continuous bleeding or drainage from the incision (a small amount is expected) ? Excessive nausea or vomiting ? Difficulty breathing If you have an emergency that requires immediate attention such as shortness of breath or chest pain, call 911 or proceed to the nearest emergency room. [facility]: [phone] Pain Medications: It is the policy of [facility] that narcotic medications will only be refilled during office hours. Additionally, due to the alarming rate of narcotic pain medication abuse/dependence, it has become necessary for physician practices to closely manage patient use of prescription narcotic pain relievers, such as Vicodin ([place]), Percocet, and Oxycodone products. Narcotic pain management in the postoperative period may not exceed 6 weeks. If narcotic pain management is required beyond 90 days, then a referral to a Chronic Pain Specialist will be made. If a request for a medication prescription of refill has been made, the physician must review your chart prior to authorizing the request. Please be patient with office staff. If you call during patient hours, your call may not be returned until the end of the day. Skin/Wound/Dressing Care Report to your healthcare provider any signs of infection, such as:: chills, fever, night sweats, increased pain, unusual drainage and unusual redness Visit Report/Discharge Packet Instructions: DI for Knee Replacement Stand Alone Forms: Patient Portal/API, Surgery Discharge Discharge Data Attending Provider: Hailey Lacey
--- NOTE | 2023-02-13 14:20 | PT.IPTN ---
Current Diagnoses Other specified crystal arthropathies, right knee (02/12/23) Unilateral primary osteoarthritis, right knee (02/12/23) Surgery Performed Operation Date: 02/12/23 07:45 Actual Procedures p Total Knee Arthroplasty(Right) - Hailey Lacey MD Physical Therapy Treatment Note M2 PT-IP Current Condition Start: 02/12/23 15:07 Freq: NEEDED Status: Active Protocol: Document 02/13/23 11:34 ES (Rec: 02/13/23 11:50 ES [id number]) Physical Therapy Current Condition Current Condition Evaluation Date 02/13/23 Treatment Diagnosis s/p R TKA Onset Date 02/12/23 M3 PT-IP Subjective Start: 02/12/23 15:07 Freq: NEEDED Status: Active Protocol: Document 02/13/23 14:22 TS (Rec: 02/13/23 14:40 TS [id number]) Subjective Physical Therapy Visit Type Type Treatment Note Visit Start Time 13:50 Visit Stop Time 14:20 Total Visit Minutes 30 Number of CHEF DE FROID Visits 1 Physical Therapy Visit Comments Patient Comments Pt found resting in bed, c/o pain in R knee, agreeable to PT. Patient Goals To go home when ready. Therapy Pain Assessment Pain When Pain Assessed During Mobility Pain Present Pain Present Pain Reported M4 PT-IP Mobility and Gait Start: 02/12/23 15:07 Freq: NEEDED Status: Active Protocol: Document 02/13/23 14:22 TS (Rec: 02/13/23 14:40 TS [id number]) PT-Bed Mobility Assessment Supine to Sit Supine to Sit Moderate Assistance,Bedrails Sit to Supine Sit to Supine Moderate Assistance Scooting Scooting to Edge of Bed Standby Assistance Scooting Up and Down in Bed Independent PT-Transfer Assessment Sit to and From Stand Sit to and from Stand Minimal Assistance Equipment Transfer Assistive Device Gait Belt,Front Wheeled Walker Orthotic/Prosthetic Devices or Brace: No Comments Mobility Comments Pt found resting in bed, agreeable to PT. Supine to HOB elevated ModA with handheld assist sitting up EOB and for RLE, calling out in pain. Sit to stand x2 Esperanza with BUE support on FWW, provided cues for R knee out in front for decreased discomfort. He ambulated in room ~60' CGA/SBA with slow/cautious step to gait, heavy use of UEs on FWW. Stand to sit CGA with cues for R knee in front for decreased discomfort, pt continues to call out. Sit to supine ModA for RLE into bed, provided cues for BUE support. Gait Assessment Gait Gait Assistance Required: Standby Assistance,Contact Guard Assist Distance (Feet) 60 Assistive Devices Assistive Device Gait Belt,Front Wheeled Walker Orthotic/Prosthetic Devices or Brace: No Gait Deviations General Gait Pattern Antalgic,Decreased Stride Length,Decreased Feet Clearance,Step-to Gait Factors Limiting Gait Function Factors Limiting Gait Function Decreased Strength,Limited Range of Motion,Pain Comments Gait Comments See mobility comments. Stair Climbing Assessment Comments Stair Climbing Comments No stairs at home. PT-Balance Assessment Sitting Balance and Reactions Static Sitting Balance Ability Good Dynamic Sitting Balance Ability Good Standing Balance and Reactions Static Standing Balance Ability Good Dynamic Standing Balance Ability Fair Device Used FWW M5 PT-IP Objective Assessments Start: 02/12/23 15:07 Freq: NEEDED Status: Active Protocol: Document 02/13/23 11:34 ES (Rec: 02/13/23 11:50 ES [id number]) Orientation Orientation/Cognition Level of Alertness Alert Orientation Name,Age,Birthday,Month,Date, Year,Day of Week,Place, Situation Language Function Ability No Deficits Noted Safety Awareness Understands Safety Issues Memory Description No Deficits Noted Gross Range of Motion Upper Extremity ROM Assessment Within Functional Limits Lower Extremity ROM Assessment Right Impaired Impairments R knee flexion 10-40 degrees, otherwise WFL Strength Upper Extremity Strength Assessment Within Functional Limits Lower Extremity Strength Assessment Right Impaired Comments Strength Comments Poor+ quad activation with quad sets. Required assist to perform heel slide/knee flexion. Sensation Assessment Sensation Gross Sensation WNL M6 PT-IP Treatment Start: 02/12/23 15:07 Freq: NEEDED Status: Active Protocol: Document 02/13/23 14:22 TS (Rec: 02/13/23 14:40 TS [id number]) Physical Therapy Treatment Education Education Provided Precautions,Weight Bearing Status,Post-Op Packet,Safety M7 PT-IP Assessment and Plan Start: 02/12/23 15:07 Freq: NEEDED Status: Active Protocol: Document 02/13/23 14:22 TS (Rec: 02/13/23 14:40 TS [id number]) PT Summary Assessment and Plan Potential Rehabilitation Potential Good Status of Condition at Evaluation Stable Summary Impairments Pain,ROM,Strength,Balance,Bed Mobility,Transfers,Gait, Activity Tolerance Assessment Summary Pt continues to be limited in his mobility due to pain. He requires ModA for uprighting trunk and for RLE assist off EOB. He performed sit to stands x2 Esperanza and requires cues for sequencing. He progressed his ambulation distance to ~60' in room SBA with slow/cautious step to gait. PT is recommending home with assistance as needed at thsi time. Pain remains largest barrier to pt d/c as he is unsafe to be home independently at this time and caregivers are out of town until Thursday. Discussed pt try to find somone else who would be available to help if he d/ c on the weekend. Goals Bed Mobility Goal Independent Transfer Goal Independent,Front Wheeled Walker Gait Goal Independent,Front Wheel Walker Gait Distance 50 Other Goals Patient will be indep with TKA HEP. Days to Meet Goals 3 Frequency of Treatment Frequency Of Treatment Twice a Day Treatment Plan Physical Therapy Treatment Plan Bed Mobility Training,Transfer Training,Gait Training, Therapeutic Exercise,Post Op Education,Discharge Planning, Hot or Cold Pack Weight Bearing Status Weight Bearing Status Weight Bear as Tolerated Recommendations To Nursing Amount of Assist Needed 1 Person Assist Discharge Recommendations PT Discharge Recommendations Home with Assistance, Outpatient PT Transportation Needs at Discharge Private Vehicle
--- NOTE | 2023-02-13 14:32 | CM.DANOTE ---
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 No Advance Directives on File No History Provided By Patient,Medical Record Prior Living Arrangements House Household Members none Type of transporation used prior to Drives own vehicle admit Independent with ADL's Yes Is patient alert and oriented? Yes Patient/Family Preference OP PT Therapy Barriers to Discharge No Comment 62 yo M POD1 from rt TKA Home w/friend tomorrow, friend cannot take patient home or assist him this evening, PT recommending patient stay one more evening, home w/friend and outpatient PT tomorrow. 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
[2023-02-13 19:50] VITALS: BP 152/84; PULSE 64; RESP 18; TEMP 36.3; O2SAT 96
[2023-02-13] MEDS: OXYCODONE IR 5 MG TABLET PO (20:25)
--- NOTE | 2023-02-13 22:37 | PC.NURSE ---
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 Pt stated this is the first time i had anyone touch me there. No redness, no edema, but tender to touch. RN applied ice pack, Pt stated that it gave instant relieve of pain.
[2023-02-14 00:31] VITALS: BP 137/69; PULSE 66; RESP 18; TEMP 36.5; O2SAT 95
[2023-02-14 04:19] VITALS: BP 116/55; PULSE 57; RESP 18; TEMP 36.6; O2SAT 93
[2023-02-14] MEDS: OXYCODONE IR 10 MG TABLET PO (06:02)
[2023-02-14] MEDS: IBUPROFEN 600 MG TABLET PO (06:02)
[2023-02-14 08:15] VITALS: BP 137/75; PULSE 66; RESP 18; TEMP 36.8; O2SAT 94
[2023-02-14] MEDS: APIXABAN 5 MG TABLET 2.5 MG PO (09:05)
[2023-02-14] MEDS: ACETAMINOPHEN 325 MG TABLET 650 MG PO (09:06)
[2023-02-14] MEDS: DOCUSATE 100 MG CAPSULE PO (09:06)
[2023-02-14] MEDS: SODIUM CHLORIDE 0.9% FLUSH 10 ML IV (09:06)
--- NOTE | 2023-02-14 11:31 | PT.IPTN ---
Current Diagnoses Other specified crystal arthropathies, right knee (02/12/23) Unilateral primary osteoarthritis, right knee (02/12/23) Surgery Performed Operation Date: 02/12/23 07:45 Actual Procedures p Total Knee Arthroplasty(Right) - Hailey Lacey MD Physical Therapy Treatment Note M2 PT-IP Current Condition Start: 02/12/23 15:07 Freq: NEEDED Status: Active Protocol: Document 02/13/23 11:34 ES (Rec: 02/13/23 11:50 ES [id number]) Physical Therapy Current Condition Current Condition Evaluation Date 02/13/23 Treatment Diagnosis s/p R TKA Onset Date 02/12/23 M3 PT-IP Subjective Start: 02/12/23 15:07 Freq: NEEDED Status: Active Protocol: Document 02/14/23 11:46 TS (Rec: 02/14/23 12:08 TS [id number]) Subjective Physical Therapy Visit Type Type Treatment Note Visit Start Time 11:31 Visit Stop Time 11:45 Total Visit Minutes 14 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 Patient Goals To go home when ready. Therapy Pain Assessment Pain When Pain Assessed During Mobility Pain Present Pain Present Pain Reported M4 PT-IP Mobility and Gait Start: 02/12/23 15:07 Freq: NEEDED Status: Active Protocol: Document 02/14/23 11:46 TS (Rec: 02/14/23 12:08 TS [id number]) PT-Bed Mobility Assessment Supine to Sit Supine to Sit Minimal Assistance,1 Person Assistance,Bedrails Sit to Supine Sit to Supine Minimal Assistance,1 Person Assistance Scooting Scooting to Edge of Bed Standby Assistance Scooting Up and Down in Bed Independent PT-Transfer Assessment Sit to and From Stand Sit to and from Stand Minimal Assistance Equipment Transfer Assistive Device Gait Belt,Front Wheeled Walker Orthotic/Prosthetic Devices or Brace: No Comments Mobility Comments Supine to sit HOB elevated Esperanza for RLE over EOB, c/o increasing pain. Pt scooted to EOB SBA with handrail assist. Sit to stand x1 Esperanza into standing, provided cues for UE support and RLE extended. Pt ambulated in room SBA with slow/cautious step to gait ~30 ', no buckling or LOB. Sit to supine Esperanza for RLE assist into bed, pain increasing. Pt was left in bed with call light nearby, all needs met. Gait Assessment Gait Gait Assistance Required: Standby Assistance Distance (Feet) 30 Assistive Devices Assistive Device Gait Belt,Front Wheeled Walker Orthotic/Prosthetic Devices or Brace: No Gait Deviations General Gait Pattern Antalgic,Decreased Stride Length,Decreased Feet Clearance,Step-to Gait Factors Limiting Gait Function Factors Limiting Gait Function Decreased Strength,Limited Range of Motion,Pain Comments Gait Comments See mobility comments. Stair Climbing Assessment Comments Stair Climbing Comments No stairs at home. PT-Balance Assessment Sitting Balance and Reactions Static Sitting Balance Ability Good Dynamic Sitting Balance Ability Good Standing Balance and Reactions Static Standing Balance Ability Good Dynamic Standing Balance Ability Fair Device Used FWW M5 PT-IP Objective Assessments Start: 02/12/23 15:07 Freq: NEEDED Status: Active Protocol: Document 02/13/23 11:34 ES (Rec: 02/13/23 11:50 ES [id number]) Orientation Orientation/Cognition Level of Alertness Alert Orientation Name,Age,Birthday,Month,Date, Year,Day of Week,Place, Situation Language Function Ability No Deficits Noted Safety Awareness Understands Safety Issues Memory Description No Deficits Noted Gross Range of Motion Upper Extremity ROM Assessment Within Functional Limits Lower Extremity ROM Assessment Right Impaired Impairments R knee flexion 10-40 degrees, otherwise WFL Strength Upper Extremity Strength Assessment Within Functional Limits Lower Extremity Strength Assessment Right Impaired Comments Strength Comments Poor+ quad activation with quad sets. Required assist to perform heel slide/knee flexion. Sensation Assessment Sensation Gross Sensation WNL M6 PT-IP Treatment Start: 02/12/23 15:07 Freq: NEEDED Status: Active Protocol: Document 02/14/23 11:46 TS (Rec: 02/14/23 12:08 TS [id number]) Physical Therapy Treatment Education Education Provided Precautions,Weight Bearing Status,Post-Op Packet,Safety M7 PT-IP Assessment and Plan Start: 02/12/23 15:07 Freq: NEEDED Status: Active Protocol: Document 02/14/23 11:46 TS (Rec: 02/14/23 12:08 TS [id number]) PT Summary Assessment and Plan Potential Rehabilitation Potential Good Summary Impairments Pain,ROM,Strength,Balance,Bed Mobility,Transfers,Gait, Activity Tolerance Progress Towards Goals Progressing Toward Goals Assessment Summary Pt is progressing well with his mobility this session. He was Esperanza for all bed mobility with RLE assist in/out of bed. Esperanza for sit to stands due to poor balance coming into standing. He continues to ambulate SBA with no buckling or LOB. PT is recommeding d/c home with assist from brother. Pt reports brother will be here at 15:00 for caregiver training and to take pt home today. Goals Bed Mobility Goal Independent Transfer Goal Independent,Front Wheeled Walker Gait Goal Independent,Front Wheel Walker Gait Distance 50 Other Goals Patient will be indep with TKA HEP. Days to Meet Goals 3 Frequency of Treatment Frequency Of Treatment Twice a Day Treatment Plan Physical Therapy Treatment Plan Bed Mobility Training,Transfer Training,Gait Training, Therapeutic Exercise,Post Op Education,Discharge Planning, Hot or Cold Pack Weight Bearing Status Weight Bearing Status Weight Bear as Tolerated Recommendations To Nursing Amount of Assist Needed 1 Person Assist Discharge Recommendations PT Discharge Recommendations Home with Assistance, Outpatient PT Transportation Needs at Discharge Private Vehicle
--- NOTE | 2023-02-14 11:58 | CM.DPC ---
DCP/continued: Order obtained for patient to d/c home today. Order cancelled yesterday because patient had nobody at home? [employer] and Wei[facility] have spoken to patient and he confirms that his brother will be here around 3:00pm to pick him up. Wei plans to do one caregiver session with patient and brother. No additional needs identified. P: Home today. D/C order has been received. MARGY
--- NOTE | 2023-02-14 15:16 | PT-IP ANOTE ---
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 Therapy setup caregiver training for 15:00, family did not want to participate and refused to come up stairs.
== END 2023-02-14 13:38 | disposition home or self-care (01) ==
LOC: OR 06:22 → AC 06:22
PROVIDERS: Referring Provider Orthopaedic Surgery Foot and Ankle Surgery; Visit Provider Orthopaedic Surgery Foot and Ankle Surgery
PROC: 0SRC0JZ Replacement of Right Knee Joint with Synthetic Substitute, Open Approach (ICD-10-PCS; CPT 27447; principal; 2023-02-12 07:45)
DX: M17.11 Unilateral primary osteoarthritis, right knee (principal); M11.861 Other specified crystal arthropathies, right knee
CPT/HCPCS: 27447; 73560; 82962; 97110; 97116; 97161; 97166; 97530; 97535; C1776; C9290; J0171; J0690; J1100; J2250; J2405; J2704; J3010

== ENCOUNTER → 2023-11-04 11:43 | Outpatient (CLI) | payer OTHER, SELFPAY ==
[2023-02-12 14:03] VITALS: BMI 34.9
[2023-11-04 13:09] LABS: Add Manual Diff / Slide Review NO; Basophils Absolute Auto 200 /uL (0-100); Basophils Percent Auto 2.2 % (0-2); Eosinophils Absolute Auto 500 /uL (0-450); Eosinophils Percent Auto 5.2 % (2-4); Hematocrit 49.1 % (41-53); Hemoglobin 17.2 g/dL (13.5-17.5); Lymphocytes Absolute Auto 3500 /uL (1100-4500); Mean Corpuscular Hemoglobin 31.4 PG (26-34); Mean Corpuscular Volume 89.7 fL (80-100); Monocytes Absolute Auto 900 /uL (0-900); Monocytes Percent Auto 9.8 % (3-14); Neutrophils Absolute Auto 4000 /uL (1500-7000); Neutrophils Percent Auto 43.8 % (50-75); Platelet Count 324 X10^3/uL (150-400); Red Blood Cell Count 5.47 X10^6/uL (4.5-5.9); Red Cell Distribution Width 12.7 % (11.6-14.8)
[2023-11-04 13:23] LABS: C-Reactive Protein Quant 1.5 mg/dL (<1.0)
[2023-11-04 13:28] LABS: Erythrocyte Sedimentation Rate 7 MM/HR (0-15)
== END ==
LOC: LAB 11:45
PROVIDERS: Referring Provider Orthopaedic Surgery Foot and Ankle Surgery; Visit Provider Orthopaedic Surgery Foot and Ankle Surgery
DX: M17.11 Unilateral primary osteoarthritis, right knee (principal)
CPT/HCPCS: 36415; 85025; 85651; 86140

== ENCOUNTER → 2023-12-22 09:02 | Outpatient (CLI) | payer OTHER, SELFPAY ==
[2023-02-12 14:03] VITALS: BMI 34.9
--- NOTE | 2023-12-22 | DI.NM.S_ITS ---
PROCEDURE: NM BONE 3 PHASE RADIOPHARMACEUTICAL: 20.2 mCi Tc-99m MDP IV. INDICATIONS: Pain due to internal orthopedic prosthetic devices TECHNIQUE: Multiple bone scintigrams were obtained after intravenous injection of Tc-99m MDP, including flow, blood pool, and delayed images centered to the region of interest. COMPARISON: [facility] [place] Corin[place], CR, XR KNEE 4+ VIEWS RIGHT, 11/27/2023, 13:49. [facility] [place] Cor[place], CR, XR KNEE 4+ VIEWS RIGHT, 08/26/2023, 13:58. FINDINGS: The comparison x-ray demonstrates right knee total arthroplasty. The right knee prosthesis is in anatomic alignment. There is a moderate knee joint effusion. A triple phase bone scan was obtained, including flow, blood pool and delayed images centered to the knees. The flow and blood pool images demonstrate increased vascular activity to the right knee compared to the left knee. Delayed images demonstrate subtle diffusely increased uptake in right knee along the peripheral aspect of the knee prosthesis. Low-level increased uptake in left knee is compatible with osteoarthritic changes. IMPRESSION: 1. There is increased flow and blood pool activity around right knee prosthesis indicating hyperemia. Subtle diffuse increased activity is also seen around the right knee prosthesis on delayed images. The scintigraphic findings are atypical for prosthesis loosening rather suggestive of an inflammatory or infectious process. Recommend clinical correlation. 2. Osteoarthritic changes in left knee. Dictated by: Queta Pathak M.D. on 12/22/2023 at 16:43 Approved by: Queta Pathak M.D. on 12/23/2023 at 8:38
== END ==
LOC: NUCM 09:04
PROVIDERS: PCP Preventive Medicine Occupational Medicine; Referring Provider Orthopaedic Surgery Foot and Ankle Surgery; Visit Provider Orthopaedic Surgery Foot and Ankle Surgery
DX: T84.84XA Pain due to internal orthopedic prosthetic devices, implants and grafts, initial encounter (principal); Z96.651 Presence of right artificial knee joint; M25.461 Effusion, right knee
CPT/HCPCS: 78315; A9503